=== PATIENT | male | born 1935 | race Caucasian/White ===

== ENCOUNTER 2019-06-25 12:42 | Emergency (ER) | payer MEDICARE, OTHER ==
--- NOTE | 2019-06-25 13:01 | ERPHSYRPT ---
- History of Present Illness Time Seen by Provider: 06/25/19 12:50 Source: patient, family Exam Limitations: no limitations Patient Subjective Stated Complaint: fever, cough for two days Triage Nursing Assessment: ambulated to room per self. skin w/d, color normal, resp nonlabored. dry cough noted. breath sounds clear. Physician History: cough fever and a sore throat since yesterday. No chest pain. Mild shortness of breath. Timing/Duration: yesterday Cough Quality/Degree: moderate, dry cough Possible Cause: occasional episodes Associated Symptoms: shortness of breath, sore throat International travel in last 2 weeks: No Allergies/Adverse Reactions: Penicillins Allergy (Mild, Verified 06/25/19 12:59) swelling of the arms Home Medications: Aspirin 81 mg PO UD 07/09/12 [History] Levothyroxine Sodium [Levoxyl] 112 mcg PO DAILY 07/09/12 [History] Nebivolol HCl [Bystolic] 10 mg PO DAILY 07/09/12 [History] Hx Tetanus, Diphtheria Vaccination/Date Given: No Hx Influenza Vaccination/Date Given: Yes Hx Pneumococcal Vaccination/Date Given: No - Review of Systems Constitutional: No Fever, No Chills Eyes: No Symptoms Ears, Nose, & Throat: No Symptoms, Throat Pain Respiratory: Cough, Other (SOB), No Dyspnea Cardiac: No Chest Pain, No Edema, No Syncope Abdominal/Gastrointestinal: No Abdominal Pain, No Nausea, No Vomiting, No Diarrhea Genitourinary Symptoms: No Dysuria Musculoskeletal: No Back Pain, No Neck Pain Skin: No Rash Neurological: No Dizziness, No Focal Weakness, No Sensory Changes Psychological: No Symptoms Endocrine: No Symptoms All Other Systems: Reviewed and Negative - Past Medical History Pertinent Past Medical History: Yes Neurological History: No Pertinent History ENT History: No Pertinent History Cardiac History: Hypertension, Other Respiratory History: Other Endocrine Medical History: No Pertinent History Musculoskeletal History: No Pertinent History GI Medical History: No Pertinent History History: No Pertinent History Psycho-Social History: No Pertinent History Male Reproductive Disorders: Prostate Cancer Other Medical History: due for aortic valve replacement - Past Surgical History Past Surgical History: Yes Neuro Surgical History: No Pertinent History Cardiac: Pacemaker Respiratory: No Pertinent History Gastrointestinal: No Pertinent History Genitourinary: No Pertinent History Musculoskeletal: Joint Replacement, Orthopedic Surgery Male Surgical History: Prostate Surgery Other Surgical History: LEFT KNEE REPLACEMENT - Social History Smoking Status: Former smoker Exposure to second hand smoke: No Drug Use: none Patient Lives Alone: No - Nursing Vital Signs Nursing Vital Signs: Initial Vital Signs Temperature 101 F 06/25/19 12:47 Pulse Rate 75 06/25/19 12:47 Respiratory Rate 20 06/25/19 12:47 Blood Pressure 134/66 06/25/19 12:47 O2 Sat by Pulse Oximetry 94 L 06/25/19 12:47 Pain Scale Pain Intensity 0 - Physical Exam General Appearance: no apparent distress, alert Eye Exam: PERRL/EOMI, eyes nml inspection Ears, Nose, Throat Exam: normal ENT inspection, TMs normal, pharynx normal, moist mucous membranes, pharyngeal erythema Neck Exam: normal inspection, non-tender, supple, full range of motion Respiratory Exam: normal breath sounds, lungs clear, airway intact, No respiratory distress, No diminished breath sounds, No accessory muscle use, No prolonged expirations, No crackles/rales, No rhonchi, No wheezing Cardiovascular Exam: regular rate/rhythm, normal heart sounds Gastrointestinal/Abdomen Exam: soft, No tenderness Back Exam: normal inspection, No CVA tenderness, No vertebral tenderness Extremity Exam: normal inspection, normal range of motion Neurologic Exam: alert, oriented x 3, cooperative, normal mood/affect, sensation nml, No motor deficits Skin Exam: normal color, warm, dry, No rash Lymphatic Exam: No adenopathy SpO2: 94 - Course Nursing assessment & vital signs reviewed: Yes Ordered Tests: Medication Summary Generic Name Dose Route Start Last Admin Trade Name Freq PRN Reason Stop Dose Admin Prednisone 20 mg 06/26/19 13:03 Deltasone 20 Mg PO 06/26/19 13:04 STAT ONE Discontinued Medications Generic Name Dose Route Start Last Admin Trade Name Freq PRN Reason Stop Dose Admin Albuterol/Ipratropium 3 ml 06/25/19 13:02 Duoneb 0.5-3 Mg/3 Ml Neb IH 06/25/19 13:03 STAT ONE Azithromycin 500 mg 06/25/19 13:02 Zithromax 250 Mg Tablet PO 06/25/19 13:03 STAT ONE - Progress Progress: improved Air Movement: good Progress Note: 06/25/19 13:04 no acute life or limb threatening condition on discharge. Blood Culture(s) Obtained: No Antibiotics given: Yes Counseled pt/family regarding: diagnosis, need for follow-up - Departure Departure Disposition: Home Clinical Impression: Acute bronchitis Qualifiers: Bronchitis organism: unspecified organism Qualified Code(s): J20.9 - Acute bronchitis, unspecified Acute pharyngitis Qualifiers: Pharyngitis/tonsillitis etiology: unspecified etiology Qualified Code(s): J02.9 - Acute pharyngitis, unspecified Condition: Stable Critical Care Time: No Referrals: SARAH GUAJARDO MD [Primary Care Provider] - Follow Up with PCP/3 days Instructions: Acute Bronchitis, Sore Throat in Adults Prescriptions: Azithromycin 250 mg [Zithromax 250 MG TABLET] 250 mg PO ZPACK #6 tablet
[2019-06-25] MEDS ORDERED: MOTRIN 400 MG ONE (13:08)
[2019-06-25] MEDS ORDERED: Zithromax 250 MG TABLET ONE (13:08)
[2019-06-25] MEDS ORDERED: DELTASONE 20 MG ONE (13:08)
[2019-06-25] MEDS: Zithromax 250 MG TABLET PO ONE (13:13)
[2019-06-25] MEDS: MOTRIN 400 MG PO ONE (13:13)
[2019-06-25] MEDS: DELTASONE 20 MG PO ONE (13:14)
[2019-06-25] MEDS ORDERED: DUONEB 0.5-3 MG/3 ml Neb IH ONE (13:19)
[2019-06-25] MEDS: DUONEB 0.5-3 MG/3 ml Neb IH ONE (13:22)
[2019-06-25 14:01] VITALS: BP 118/59; PULSE 80; O2SAT 95
== END 2019-06-25 14:17 | disposition home or self-care (01) ==
LOC: ED 12:42
DX: J20.9 Acute bronchitis, unspecified (principal); J02.9 Acute pharyngitis, unspecified
CPT/HCPCS: 94150; 94640; 99283; A9270-GY

== ENCOUNTER 2020-01-02 10:01 | Emergency (ER) | payer MEDICARE, OTHER ==
[2020-01-02 10:26] VITALS: BP 176/77; PULSE 65; O2SAT 99
--- NOTE | 2020-01-02 11:00 | ERPHSYRPT ---
- History of Present Illness Time Seen by Provider: 01/02/20 10:30 Source: patient Exam Limitations: no limitations Patient Subjective Stated Complaint: "I had new pacemaker put in on 14 of december and noticied a wire sticking out about a week ago" Triage Nursing Assessment: Aaox3, walked in. States he noticed wire sticking out of new pacemaker site. Denies pain. Noticed approx 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 has not other complaints. Physician History: Concerned about some suture material that is extruding from the end of the laceration for his pacemaker. Severity: mild Location: torso Possible Causes: other (Her) Allergies/Adverse Reactions: Penicillins Allergy (Mild, Verified 06/25/19 12:59) swelling of the arms Home Medications: Aspirin 81 mg PO UD 07/09/12 [History] Levothyroxine Sodium [Levoxyl] 112 mcg PO DAILY 07/09/12 [History] Nebivolol HCl [Bystolic] 10 mg PO DAILY 07/09/12 [History] Hx Tetanus, Diphtheria Vaccination/Date Given: No Hx Influenza Vaccination/Date Given: Yes Hx Pneumococcal Vaccination/Date Given: No Travel Risk - International Travel Have you traveled outside of the country in past 3 weeks: No - Coronavirus Screening Are you exhibiting any of the following symptoms?: No Close contact with a COVID-19 positive Pt in past 14-21 Days: No - Review of Systems Constitutional: No Fever, No Chills Eyes: No Symptoms Ears, Nose, & Throat: No Symptoms Respiratory: No Cough, No Dyspnea Cardiac: No Chest Pain, No Edema, No Syncope Abdominal/Gastrointestinal: No Abdominal Pain, No Nausea, No Vomiting, No Diarrhea Genitourinary Symptoms: No Dysuria Musculoskeletal: No Back Pain, No Neck Pain Skin: Other (Small piece of suture near the incision), No Rash Neurological: No Dizziness, No Focal Weakness, No Sensory Changes Psychological: No Symptoms Endocrine: No Symptoms All Other Systems: Reviewed and Negative - Past Medical History Pertinent Past Medical History: Yes Neurological History: No Pertinent History ENT History: No Pertinent History Cardiac History: Hypertension, Other Respiratory History: Other Endocrine Medical History: No Pertinent History Musculoskeletal History: No Pertinent History GI Medical History: No Pertinent History History: No Pertinent History Psycho-Social History: No Pertinent History Male Reproductive Disorders: Prostate Cancer Other Medical History: due for aortic valve replacement - Past Surgical History Past Surgical History: Yes Neuro Surgical History: No Pertinent History Cardiac: Pacemaker Respiratory: No Pertinent History Gastrointestinal: No Pertinent History Genitourinary: No Pertinent History Musculoskeletal: Joint Replacement, Orthopedic Surgery Male Surgical History: Prostate Surgery Other Surgical History: LEFT KNEE REPLACEMENT - Social History Smoking Status: Never smoker Exposure to second hand smoke: No Drug Use: none Patient Lives Alone: No - Nursing Vital Signs Nursing Vital Signs: Initial Vital Signs Temperature 97.5 F 01/02/20 10:18 Pulse Rate 65 01/02/20 10:18 Respiratory Rate 20 01/02/20 10:18 Blood Pressure 176/77 01/02/20 10:18 O2 Sat by Pulse Oximetry 99 01/02/20 10:18 Pain Scale Pain Intensity 0 - Physical Exam General Appearance: no apparent distress, alert Eye Exam: PERRL/EOMI, eyes nml inspection Ears, Nose, Throat Exam: normal ENT inspection, pharynx normal, moist mucous membranes Neck Exam: normal inspection, non-tender, supple, full range of motion Respiratory Exam: normal breath sounds, lungs clear, No respiratory distress Cardiovascular Exam: regular rate/rhythm, normal heart sounds Gastrointestinal/Abdomen Exam: soft, mass, No tenderness Back Exam: normal inspection, normal range of motion, No CVA tenderness, No vertebral tenderness Extremity Exam: normal inspection, normal range of motion Neurologic Exam: alert, oriented x 3, cooperative, normal mood/affect, sensation nml, No motor deficits Skin Exam: normal color, warm, dry, other (He has a healing incision and over to the lateral aspect of it there is a small piece of absorbable suture remaining it was removed without difficulty) SpO2 Interpretation: normal SpO2: 99 - Course Nursing assessment & vital signs reviewed: Yes - Progress Progress: improved - Departure Departure Disposition: Home Clinical Impression: Encounter for removal of sutures Condition: Stable Critical Care Time: No Referrals: SARAH GUAJARDO MD [Primary Care Provider] - Instructions: Wound Care (DC), Surgical Wound (DC)
== END 2020-01-02 11:19 | disposition home or self-care (01) ==
LOC: ED 10:01
DX: Z48.02 Encounter for removal of sutures (principal)
CPT/HCPCS: 99283; G0463

== ENCOUNTER 2021-02-17 20:11 | Emergency (ER) | payer MEDICARE, OTHER ==
[2012-07-11 11:35] VITALS: BP 133/65
[2021-02-18] MEDS ORDERED: Zithromax 250 MG TABLET ONE (00:27)
[2021-02-18 07:23] LABS: Hematocrit 39.6 % (42-50); Hemoglobin 12.7 gm/dl (12.5-18.0); Mean Cell Volume 89.2 fl (78-100); Mean Corpuscular Hemoglobin 28.6 pg (26-32); Mean Corpuscular Hgb Concent. 32.1 g/dl (32-36); Mean Platelet Volume 9.2 fl (7.5-11.0); Platelet Count 184 K/mm3 (150-450); Red Blood Count 4.44 M/mm3 (4.1-5.6); Red Cell Distribution Width 12.6 % (11.5-14.0); White Blood Count 5.9 K/mm3 (4.0-10.5)
[2021-02-18 07:24] LABS: ALBUMIN 4.1 g/dL (3.5-5.0); BILIRUBIN,TOTAL 0.5 mg/dL (0.2-1.3); Calcium 9.8 mg/dL (8.4-10.2); Creatinine 1 1.52 mg/dL (0.66-1.25); EST GLOMERULAR FILTRATION RATE 46.6 ML/MIN; Potassium 4.4 mmol/L (3.5-5.1); TROPONIN 0.033 ng/mL (0.000-0.034); Total Protein 6.7 g/dL (6.3-8.2)
[2021-02-18 07:25] LABS: ANION GAP 15.4 MEQ/L (5-15)
--- NOTE | 2021-02-18 10:04 | XRAY ---
Indication: Short of breath. Positive Covid 19. Comparison: 07/31/2020. Portable chest less inflated with new minimal left base infiltrate versus atelectasis. Stable scattered tiny calcified granulomas. Heart not enlarged again with cardiac valve replacement, left pacemaker, and tortuous descending aorta. Bony thorax intact again with mild osteopenia and degenerative changes. Impression: New left base infiltrate/atelectasis. Again postsurgical changes, chronic bony findings, and old granulomatous disease
== END 2021-02-18 00:32 | disposition home or self-care (01) ==
LOC: ED 20:11
DX: J40 Bronchitis, not specified as acute or chronic (principal); Z79.899 Other long term (current) drug therapy; Z95.0 Presence of cardiac pacemaker; Z95.1 Presence of aortocoronary bypass graft; Z20.822 Contact with and (suspected) exposure to COVID-19
CPT/HCPCS: 36415; 71045; 80053; 83880; 84484; 85027; 99282; U0003; A9270-GY

== ENCOUNTER 2024-11-08 14:31 | Emergency (ER) | payer MEDICARE, OTHER ==
--- NOTE | 2024-11-08 14:34 | ERPHSYRPT ---
- History of Present Illness Time Seen by Provider: 11/08/24 14:34 Source: patient, family Exam Limitations: no limitations Physician History: This is an 89-year-old right-handed white male patient who arrives by private vehicle accompanied by a family member and is a patient of Dr. Guajardo and presents with a left hand palmar aspect base of left index finger flap skin laceration. It occurred accidentally prior to arrival while trying to perform plumbing at his home. Patient has a history of hypertension, hypothyroidism and history of prostate cancer. Patient's tetanus status unknown Timing/Duration: today Quality: painful (Very mild) Severity: mild Location: hands (Left hand palmar aspect) Associated Symptoms: denies symptoms Allergies/Adverse Reactions: Penicillins Allergy (Mild, Verified 11/08/24 14:36) swelling of the arms Home Medications: Aspirin 81 mg PO UD 07/09/12 [History] Levothyroxine Sodium [Levoxyl] 112 mcg PO DAILY 07/09/12 [History] Nebivolol HCl [Bystolic] 10 mg PO DAILY 07/09/12 [History] Hx Tetanus, Diphtheria Vaccination/Date Given: No Hx Influenza Vaccination/Date Given: Yes Hx Pneumococcal Vaccination/Date Given: No Travel Risk - International Travel Have you traveled outside of the country in past 3 weeks: No - Emerging Infectious Disease Are you exhibiting symptoms associated with any current EIDs: No - Review of Systems Constitutional: No Symptoms Eyes: No Symptoms Ears, Nose, & Throat: No Symptoms Respiratory: No Symptoms Cardiac: No Symptoms Abdominal/Gastrointestinal: No Symptoms Genitourinary Symptoms: No Symptoms Musculoskeletal: No Symptoms Skin: Other (1 and half centimeter skin flap base of left index finger) Neurological: No Symptoms Psychological: No Symptoms Endocrine: No Symptoms Hematologic/Lymphatic: No Symptoms Immunological/Allergic: No Symptoms All Other Systems: Reviewed and Negative - Past Medical History Pertinent Past Medical History: Yes Neurological History: No Pertinent History ENT History: No Pertinent History Cardiac History: Hypertension, Other Respiratory History: Other Endocrine Medical History: No Pertinent History Musculoskeletal History: No Pertinent History GI Medical History: No Pertinent History History: No Pertinent History Psycho-Social History: No Pertinent History Male Reproductive Disorders: Prostate Cancer Other Medical History: due for aortic valve replacement - Past Surgical History Past Surgical History: Yes Neuro Surgical History: No Pertinent History Cardiac: Pacemaker Respiratory: No Pertinent History Gastrointestinal: No Pertinent History Genitourinary: No Pertinent History Musculoskeletal: Joint Replacement, Orthopedic Surgery Male Surgical History: Prostate Surgery Other Surgical History: LEFT KNEE REPLACEMENT - Social History Smoking Status: Never smoker Exposure to second hand smoke: No Drug Use: none Patient Lives Alone: No - Nursing Vital Signs Nursing Vital Signs: Initial Vital Signs Temperature 97 F 11/08/24 14:52 Pulse Rate 62 11/08/24 14:52 Respiratory Rate 18 11/08/24 14:52 Blood Pressure 162/95 11/08/24 14:52 O2 Sat by Pulse Oximetry 97 11/08/24 14:52 Pain Scale Pain Intensity 0 - Physical Exam General Appearance: no apparent distress, alert Eye Exam: PERRL/EOMI, eyes nml inspection Ears, Nose, Throat Exam: normal ENT inspection, moist mucous membranes Neck Exam: normal inspection, non-tender, supple, full range of motion Respiratory Exam: airway intact, No chest tenderness, No respiratory distress Cardiovascular Exam: normal peripheral pulses (Left radial artery) Gastrointestinal/Abdomen Exam: No tenderness Rectal Exam: not done Back Exam: normal inspection, normal range of motion, No CVA tenderness, No vertebral tenderness Extremity Exam: normal range of motion, pelvis stable, lacerations (1-1/2 cm flap skin laceration palmar aspect base of index finger left hand), other (Tendons intact and neurovascularly intact) Neurologic Exam: alert, oriented x 3, cooperative, 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 Patient tolerated the procedure well. Pressure dressing applied - Course Nursing assessment & vital signs reviewed: Yes Ordered Tests: Medication Summary Discontinued Medications Generic Name Dose Route Start Last Admin Trade Name Freq PRN Reason Stop Dose Admin Diphtheria/Tetanus/Acell Pertussis 0.5 ml 11/08/24 15:08 Tdap --Diph,Pertuss(Acell),Tet Vac/Pf 0.5 Ml Vial IM 11/08/24 15:09 .ONCE ONE - Progress Progress: improved Progress Note: 11/08/24 15:15 My medical decision making and the assignment of low complexity to this patient's medical issue today is based on review of the patient's past medical history, review the patient's medication list, reviewed patient drug allergy list, history present illness and physical findings on examination. The workup today does not require laboratory radiographic studies. Differential diagnosis includes but is not limited to skin laceration, skin flap laceration, abrasion, skin tear, contusion Counseled pt/family regarding: diagnosis Medical Desision Making - Independent Historian Additional History obtained from: Family - Diagnostic Testing Diagnostic test were ordered, analyzed, and reviewed by me: No - Risk of complications Minimal Risk: Minimal risk of morbidity - Departure Departure Disposition: Home Clinical Impression: Flap laceration of skin Condition: Stable Critical Care Time: No Referrals: SARAH GUAJARDO MD [Primary Care Provider, INTERNAL MEDICINE] - Follow up/PCP as directed Additional Instructions: Keep the current pressure dressing in place until the evening of 11/09/2024. At that time, you may remove the pressure dressing but leave the Steri-Strips in place. At that time you may also rinse the site off with soapy water. Do not scrub or rub the area. You may blot dry or use a math and sciences department chair. Trim the Steri- Strips as they curl up. They will begin curling up approximately 5 to 7 days. Use Tylenol for pain control.
[2024-11-08 14:52] VITALS: PULSE 62; TEMP 97
[2024-11-08] MEDS ORDERED: Adacel Vial IM ONE (15:11)
[2024-11-08] MEDS: Adacel Vial IM ONE (15:13)
[2024-11-08 15:20] VITALS: BP 148/82; RESP 17; O2SAT 99
== END 2024-11-08 15:31 | disposition home or self-care (01) ==
LOC: ED 14:31
DX: S61.211A Laceration without foreign body of left index finger without damage to nail, initial encounter (principal); Z79.899 Other long term (current) drug therapy; Z23 Encounter for immunization
CPT/HCPCS: 12001; 90471; 90715; 99282; 99283